=== PATIENT | female | born 1945 | race Caucasian/White ===

== ENCOUNTER → 2016-08-15 | Outpatient (CLI) | payer OTHER ==
[2016-08-17 22:35] LABS: HSV TYPE 1 DNA Not Detected (Not Detected); HSV TYPE 2 DNA Detected (Not Detected)
== END | disposition home or self-care (01) ==
LOC: C.LABSPEC 17:45
PROVIDERS: ATTEND Obstetrics & Gynecology
DX: N76.6 Ulceration of vulva (principal)

== ENCOUNTER → 2016-09-18 | Outpatient (CLI) | payer OTHER ==
[2016-09-18 16:31] LABS: LYME DISEASE AB IGG NEG (NEG)
[2016-09-18 16:42] LABS: LYME DISEASE AB IGM POS (NEG)
[2016-09-25 04:47] LABS: 18KDIGG BAND NONREACTIVE (NONREACTIVE); 23KDIGG BAND REACTIVE (NONREACTIVE); 23KDIGM BAND REACTIVE (NONREACTIVE); 28KDIGG BAND NONREACTIVE (NONREACTIVE); 30KDIGG BAND NONREACTIVE (NONREACTIVE); 39KDIGG BAND NONREACTIVE (NONREACTIVE); 39KDIGM BAND NONREACTIVE (NONREACTIVE); 41KDIGG BAND REACTIVE (NONREACTIVE); 41KDIGM BAND NONREACTIVE (NONREACTIVE); 45KDIGG BAND NONREACTIVE (NONREACTIVE); 58KDIGG BAND NONREACTIVE (NONREACTIVE); 66KDIGG BAND NONREACTIVE (NONREACTIVE); 93KDIGG BAND NONREACTIVE (NONREACTIVE)
== END | disposition home or self-care (01) ==
LOC: C.LAB1850 13:47
PROVIDERS: ATTEND Internal Medicine
DX: Z00.00 Encounter for general adult medical examination without abnormal findings (principal); Z11.59 Encounter for screening for other viral diseases; W57.XXXA Bitten or stung by nonvenomous insect and other nonvenomous arthropods, initial encounter; E78.5 Hyperlipidemia, unspecified

== ENCOUNTER → 2017-08-08 | Outpatient (CLI) | payer OTHER ==
--- NOTE | 2017-08-08 12:07 | DIAGNOSTIC IMAGING REPORT ---
L SHOULDER MIN 2 VIEWS ROUTINE CLINICAL HISTORY: SHOULDER LUMP mass COMPARISON: None. DISCUSSION: The bones and joint spaces appear intact. There is no evidence of fracture, dislocation or bony disease. Soft tissue is remarkable for a ovoid lucency superior to the distal aspect of the left clavicle. Approximate measurements are 7 x 3 cm. This suggestive of lipoma. IMPRESSION: 1. No acute process left shoulder. 2. Lucent curvilinear mass superior to the distal left clavicle measuring 7 x 3 cm. 3. This is suggestive of a lipoma. The above report was generated using voice recognition software. It may contain grammatical, syntax or spelling errors. Electronically signed by: Mario Blancas M.D. 08/08/2017 12:06 PM Dictated Date/Time: 08/08/2017 12:05 PM
== END | disposition home or self-care (01) ==
LOC: C.RAD1850 11:45
PROVIDERS: ATTEND Internal Medicine
DX: M19.012 Primary osteoarthritis, left shoulder (principal)

== ENCOUNTER → 2017-10-27 | Outpatient (CLI) | payer OTHER ==
[2017-10-27 12:16] LABS: BASO % 0.6 %; BASO ABS # 0.03 K/uL (0-0.2); EOS % 2.1 %; HEMOGLOBIN 13.7 g/dL (12.0-16.0); LYMPH ABS # 1.61 K/uL (1.2-3.4); MEAN CELL VOLUME 92.9 fL (80-100); MEAN CORPUSCULAR HEMOGLOBIN 30.3 pg (25-34); MEAN CORPUSCULAR HGB CONC 32.6 g/dl (32-36); MEAN PLATELET VOLUME 10.5 fL (7.4-10.4); MONO % 8.6 %; MONO ABS # 0.41 K/uL (0.11-0.59); NEUT % 54.7 %; NEUT ABS # 2.59 K/uL (1.4-6.5); PLATELET COUNT 238 K/uL (130-400); RED CELL DISTRIBUTION WIDTH CV 13.3 % (11.5-14.5); RED CELL DISTRIBUTION WIDTH SD 45.3 fL (36.4-46.3); WHITE BLOOD COUNT 4.74 K/uL (4.8-10.8)
[2017-10-27 12:26] LABS: INR 1.1 (0.9-1.1); PTT PATIENT 25.9 SECONDS (21.0-31.0)
[2017-10-27 12:49] LABS: BLOOD UREA NITROGEN 12 mg/dl (7-18); CARBON DIOXIDE 29 mmol/L (21-32); CREATININE 0.71 mg/dl (0.60-1.20); GLUCOSE 139 mg/dl (70-99); SODIUM 140 mmol/L (136-145)
== END | disposition home or self-care (01) ==
LOC: C.LAB 11:18
PROVIDERS: ATTEND Physician Assistant
DX: Z01.818 Encounter for other preprocedural examination (principal); D17.20 Benign lipomatous neoplasm of skin and subcutaneous tissue of unspecified limb

== ENCOUNTER → 2017-11-11 | Day surgery (SDC) | payer OTHER ==
[~2017-11-11] VITALS: Ht 160 cm; Wt 55.0 kg
[~2017-11-11] MED LIST: ATROPINE SULFATE 0.1 MG/ML 5ML SYR IV PRN; BUPIVACAINE 0.25% 30 ML VIAL ONE; CEFAZOLIN 2000MG IV PUSH 15 ML IV SCH; DEXAMETHASONE SOD INJ 4 MG/ML VIAL ONE; EpHEDrine SULFATE INJ 50 MG/ML AMP IV PRN; FENTANYL CITRATE INJ 50 MCG/1 ML 2 ML VIAL IV PRN; FENTANYL CITRATE INJ 50 MCG/1 ML 2 ML VIAL ONE; GENTIAN VIOLET TOP SOLN DROP CHARGE ONE; HYDROmorphone INJ 1 MG/ML SYR IV PRN; LACTATED RINGER'S 1000ML 1,000 ML IV SCH; LIDOCAINE HCL 1% 20 ML VIAL ONE; LIDOCAINE HCL 2% 2 ML VIAL (20MG/ML) ONE; LIDOCAINE/EPINEPHRINE 1% 20 ML VIAL ONE; METOCLOPRAMIDE HCL INJ 5 MG/ML 2 ML VIAL IV PRN; MIDAZOLAM HCL 1 MG/ML 2ML VIAL ONE; ONDANSETRON INJ 2 MG/ML 2 ML VIAL IV PRN; ONDANSETRON INJ 2 MG/ML 2 ML VIAL ONE; OXYCODONE/ACETAMINOPHEN 5-325 TAB PO PRN; PHENYLEPHRINE 100MCG/ML 5ML SYR IV PRN; PROPOFOL IV EMULSION 10 MG/ML 20 ML VIAL ONE; SODIUM CHLORIDE 0.9% 1000ML 1,000 ML IV SCH
[2017-11-11 11:10] VITALS: Ht 160 cm; Wt 55.0 kg
--- NOTE | 2017-11-11 13:32 | History & Physical Bridge - [place] ---
H&P Re-Evaluation Bridge Note: I have examined the patient, reviewed the History & Physical and in the interval since the performance of the History & Physical I have noted the following changes of clinical significance: No changes noted
--- NOTE | 2017-11-11 14:37 | [facility] Post Operative Brief Note ---
Immediate Operative Summary Operative Date Nov 11, 2017. Pre-Operative Diagnosis Left Shoulder Lipoma Post-Operative Diagnosis same Procedure(s) Performed Left Shoulder Lipoma Excision Surgeon Dr. Andrea Monroy Foreign Exchange Dealer Surgeon(s) 0 Estimated Blood Loss 10CC Findings Consistent with Post-Op Diagnosis intramuscular 7x6 cm Specimens A. Lipoma Left Shoulder Anesthesia Type General Complication(s) none
--- NOTE | 2017-11-11 14:40 | Discharge Instructions-SurgCtr ---
Discharge Instructions Date of Service Nov 11, 2017. Visit Reason for Visit: Lipoma Of Shoulder Discharge Discharge Diagnosis / Problem: left shoulder lipoma Discharge Goals Goal(s): Decrease discomfort, Improve function Medications Stopped Medications Name(s): stopped vitamins ten days ago Activity Recommendations Activity Limitations: per Instructions/Follow-up section Anesthesia . Post Anesthesia Instructions: If you have had General Anesthesia or IV Sedation: * Do not drive today. * Resume driving when surgeon permits. * Do not make important decisions or sign legal documents today. * Call surgeon for: 1. Temperature elevations greater than 101 degrees F. 2. Uncontrollable pain. 3. Excessive bleeding. 4. Persistent nausea and vomiting. 5. Medication intolerance (nausea, vomiting or rash). * For nausea and vomiting use only clear liquids such as: tea, soda, bouillon until nausea subsides, then gradually increase diet as tolerated. * If you have any concerns or questions, call your surgeon's office. If physician is unavailable and it is an emergency, call 911 or go to the nearest emergency room. . Instructions / Follow-Up Instructions / Follow-Up ACTIVITY RECOMMENDATIONS: __Normal activities _x_No bending, lifting or straining __No driving _x_Driving allowed when you are off pain medications _x_Walking permitted __You should have help at home for ___ days DRESSINGS: __No dressings required _x_Keep dressings dry/in place until first office visit __Remove dressings ___ and leave dressings off _x_Apply ice _2__ days __Remove dressings and reapply garment __Apply antibiotic ointment (Bacitracin, Neosporin, etc) to wounds 3-4 times/ day for 10 days BATHING: __Keep dressings dry _x_Sponge bathing permitted __Showering permitted _x_No swimming, hot tubs or soaking in a tub MEDICATIONS: Resume previous medications unless instructed otherwise by your surgeon. _x_Do not use aspirin, Motrin, Advil or Ibuprofen as these may promote bleeding. Please use Tylenol. _x_Prescription(s) provided in office OTHER INSTRUCTIONS: __Record drain output 2-3 times per day SPECIAL CARE INSTRUCTIONS: * It is normal to have a mild fever after surgery. If your temperature is higher than 101.5 degrees F, please call the office at [phone]. * Constipation is a typical side effect of pain medication. An over-the- counter stool softener will help relieve this. * Leaking around surgical drains may occur and should not cause concern. Sometimes these drains become clogged. If this happens, remove the bulb and milk the clot out of the tube, then replace the bulb. * Drainage from wounds after liposuction is normal and should be expected. Garments will become soiled. You should protect furniture and bedding. This drainage should mostly subside within 2-3 days. Leave garments in place unless instructed to remove them. * If you have unusual drainage from a wound or are concerned you have an infection or have any questions or concerns, please call the office at [phone]. FOLLOW UP VISIT: If not already scheduled, please call the office, , when you return home after surgery to schedule an appointment to be seen in _2__ days. Diet Recommendations Home Diet: resume previous diet Procedures Procedures Performed: Left Shoulder Lipoma Excision Pending Studies Studies pending at discharge: no Medical Emergencies . Who to Call and When: Medical Emergencies: If at any time you feel your situation is an emergency, please call 911 immediately. . Non-Emergent Contact Non-Emergency issues call your: Primary Care Provider . . "Provider Documentation" section prepared by Di Monroy. . [place] Drug Monitoring Program Search Results: patient reviewed within database, no issues identified
--- NOTE | 2017-11-11 15:11 | Anesthesia Progress Nt - [facility] ---
Anesthesia Post Op Note Date & Time Nov 11, 2017 at 15:11 Vital Signs Pain Intensity: 0 Vital Signs Past 12 Hours Date Time Temp Pulse Resp B/P (MAP) Pulse Ox O2 Delivery O2 Flow Rate FiO2 11/11/17 15:09 61 17 11/11/17 15:09 60 17 100 11/11/17 15:07 36.1 63 20 120/73 100 Room Air 11/11/17 15:05 120/73 11/11/17 15:04 65 18 11/11/17 15:04 64 18 100 11/11/17 15:00 130/79 11/11/17 14:59 65 15 11/11/17 14:59 65 15 100 11/11/17 14:55 114/66 11/11/17 14:54 66 15 100 11/11/17 14:54 65 15 11/11/17 14:50 124/66 11/11/17 14:49 73 17 11/11/17 14:49 73 17 100 11/11/17 14:45 125/79 11/11/17 14:44 88 127/81 100 11/11/17 14:44 36.5 85 12 127/81 99 Mask 5 11/11/17 14:44 88 11/11/17 11:24 36.9 77 16 134/71 (92) 98 Room Air Notes Mental Status: alert / awake / arousable, participated in evaluation Pt Amnestic to Procedure: Yes Nausea / Vomiting: adequately controlled Pain: adequately controlled Airway Patency, RR, SpO2: stable & adequate BP & HR: stable & adequate Hydration State: stable & adequate Anesthetic Complications: no major complications apparent
[2017-11-11 15:16] VITALS: TEMP 36.4
[2017-11-11 15:42] VITALS: BP 134/64; PULSE 54; O2SAT 100
--- NOTE | 2017-11-13 12:03 | OPERATIVE REPORT ---
DATE OF OPERATION: 11/11/2017 PREOPERATIVE DIAGNOSIS: Left shoulder lipoma. POSTOPERATIVE DIAGNOSIS: Same. PROCEDURE: Excision of a large intramuscular left shoulder lipoma. SURGEON: Di Monroy MD. MICRO COMPUTER SPECIALIST: None. ANESTHESIA: General. COMPLICATIONS: None. 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 Ultrasound was obtained by her primary care physician, which suggested this was a lipoma. Based on clinical examination, it was felt to likely be submuscular. BRIEF DESCRIPTION OF THE PROCEDURE: Risks, benefits, and alternatives of the procedure were explained to the patient, who agreed and signed consent. She was identified and marked in the preoperative holding area. She was brought to the operating room where she was placed under anesthesia and seated in a beach chair position. The area was prepped and draped sterilely. Timeout procedure was performed. 1% lidocaine with epinephrine mixed with 0.25% Marcaine plain was used to anesthetize the area. A linear incision was made along the left shoulder over the fullest part of the mass. Dissection was carried through subcutaneous fat. Trapezius muscle was encountered. Lipoma was felt to be deep to this muscle. A muscle splitting incision was made using a hemostat. Dissection through the muscle revealed an encapsulated soft tissue mass consistent with lipoma. Capsule was incised using electrocautery. Blunt finger dissection was used to free up the lipoma. It was somewhat poorly circumscribed. There were long linear globules of fat. Blunt dissection was undertaken until the entire mass was removed. Specimen in its largest diameter was 7 cm. Hemostasis was achieved with electrocautery, and the wound bed was irrigated using normal saline. Additional local anesthetic was placed. A quarter inch Vipul drain was placed into the wound bed. Muscle was reapproximated using 2-0 Vicryl interrupted sutures. Deep dermis reapproximated using 2-0 Vicryl interrupted sutures. Skin was closed using 3-0 Monocryl running subcuticular suture. Dermabond was applied. Bulky dressing was placed. Patient was awakened and transferred to the recovery room in satisfactory condition. I attest to the content of the Intraoperative Record and any orders documented therein. Any exception s are noted below.
== END | disposition home or self-care (01) ==
LOC: X.SURG 10:18
PROVIDERS: ATTEND Plastic Surgery
DX: D17.79 Benign lipomatous neoplasm of other sites (principal); M19.012 Primary osteoarthritis, left shoulder; J45.909 Unspecified asthma, uncomplicated; E78.5 Hyperlipidemia, unspecified; M85.80 Other specified disorders of bone density and structure, unspecified site; K21.9 Gastro-esophageal reflux disease without esophagitis; Z80.0 Family history of malignant neoplasm of digestive organs; Z82.49 Family history of ischemic heart disease and other diseases of the circulatory system; Z83.49 Family history of other endocrine, nutritional and metabolic diseases; Z80.42 Family history of malignant neoplasm of prostate; Z82.5 Family history of asthma and other chronic lower respiratory diseases; Z79.899 Other long term (current) drug therapy